=== PATIENT | female | born 1960 | race African-American/Black ===

== ENCOUNTER 2020-12-12 07:31 | Inpatient (IN) | payer OTHER ==
[2020-12-01 14:56] VITALS: BMI 30.6
[2020-12-12] MEDS ORDERED: TRANEXAMIC ACID 1000 MG/10 ML VIAL ONE (09:15)
[2020-12-12] MEDS ORDERED: EPINEPHrine 1:1,000 1 MG/1 ML - 30ML VIAL (INJECTION) ONE (09:15)
[2020-12-12] MEDS ORDERED: SODIUM CHLORIDE 0.9% P/F 10 ML VIAL IJ ONE (09:15)
[2020-12-12] MEDS ORDERED: BUPIVACAINE HCL/PF 0.5% (5 MG/ML) 30 ML VIAL IJ ONE (09:23)
[2020-12-12] MEDS ORDERED: MIDAZOLAM HCL 2 MG/2 ML SINGLE DOSE VIAL ONE (09:23)
[2020-12-12] MEDS ORDERED: BUPIVACAINE LIPOSOME/PF (EXPAREL) 266 MG/20 ML VIAL ONE (09:23)
[2020-12-12] MEDS ORDERED: LIDOCAINE HCL/PF 2% SDV 5ML VIAL ONE (10:17)
[2020-12-12] MEDS ORDERED: ROCURONIUM BROMIDE 50 MG/5 ML SYRINGE ONE (10:17)
[2020-12-12] MEDS ORDERED: ALBUTEROL SO4 HFA INHALER IH ONE (10:17)
[2020-12-12] MEDS ORDERED: DEXAMETHASONE SOD PHOSPHATE 4 MG/1 ML VIAL ONE ×2 (10:17→11:37)
[2020-12-12] MEDS ORDERED: PROPOFOL 20 ML ONE ×2 (10:17→14:14)
[2020-12-12] MEDS ORDERED: ONDANSETRON 4 MG/2 ML VIAL ONE ×2 (10:17→14:46)
[2020-12-12] MEDS ORDERED: ceFAZolin SODIUM 1 GM VIAL ONE ×2 (11:19→15:50)
[2020-12-12] MEDS ORDERED: VANCOMYCIN 1,000 MG VIAL (RESTRICTED TO ID ONLY) ONE (11:47)
[2020-12-12] MEDS ORDERED: ALBUTEROL SO4 HFA INHALER IH PRN (12:47)
[2020-12-12] MEDS ORDERED: GABAPENTIN 300 MG CAPSULE PO SCH (14:00)
[2020-12-12] MEDS ORDERED: ONDANSETRON 4 MG/2 ML VIAL IVPUSH PRN ×2 (16:03→16:42)
[2020-12-12] MEDS ORDERED: MAG HYDROX/AL HYDROX/SIMETH 30 ML UNIT-DOSE CUP PO PRN (16:03)
[2020-12-12] MEDS ORDERED: oxyCODONE HCL 5 MG TABLET PO PRN (16:09)
[2020-12-12] MEDS ORDERED: morphine SULFATE 4 MG/ML VIAL SQ PRN (16:10)
[2020-12-12] MEDS ORDERED: ACETAMINOPHEN 325 MG TABLET (FP) PO SCH (16:15)
[2020-12-12] MEDS ORDERED: LACTATED RINGERS SOLUTION 1,000 ML IV SCH ×2 (16:15→16:45)
[2020-12-12] MEDS ORDERED: ACETAMINOPHEN 325 MG TABLET (FP) ONE (16:44)
[2020-12-12] MEDS: GABAPENTIN 300 MG CAPSULE PO SCH (17:56)
[2020-12-12] MEDS: SENNOSIDES/DOCUSATE COMBO (SENNA PLUS) TABLET (UD) PO SCH (21:09)
[2020-12-12] MEDS: risperiDONE 1 MG TABLET PO SCH (21:10)
[2020-12-12] MEDS: CARVEDILOL 25 MG TABLET (FP) PO SCH (21:10)
[2020-12-12] MEDS: FLUTICASONE/SALMETEROL 100 MCG/50 MCG DISKUS IH SCH (21:10)
[2020-12-13] MEDS: GABAPENTIN 300 MG CAPSULE PO SCH ×3 (02:00→17:33)
[2020-12-13] MEDS: ACETAMINOPHEN 325 MG TABLET (FP) PO SCH ×5 (06:46→23:13)
[2020-12-13 07:31] LABS: HEMATOCRIT 35.4 % (32.4-45.2); HEMOGLOBIN 11.6 GM/dl (10.7-15.3); MCH 27.7 pg (25.7-33.7); MCHC 32.8 g/dl (32.0-36.0); MEAN CELL VOLUME 84.4 fl (80-96); MEAN PLT VOLUME 8.5 fl (7.5-11.1); PLATELET COUNT 217 K/MM3 (134-434); RDW 13.9 % (11.6-15.6); WHITE BLOOD COUNT 10.4 K/mm3 (4.0-10.8)
[2020-12-13 07:43] LABS: CALCIUM 8.4 mg/dl (8.5-10); CREATININE 1.2 mg/dl (0.55-1.3)
[2020-12-13] MEDS: HYDROCHLOROTHIAZIDE 25 MG TABLET (FP) PO SCH (09:51)
[2020-12-13] MEDS: ASPIRIN 325 MG TABLET PO SCH (09:51)
[2020-12-13] MEDS: PANTOPRAZOLE 40 MG TABLET PO SCH (09:51)
[2020-12-13] MEDS: CEFAZOLIN 2 GM/D5W 2 GM/50 ML ML IVPB SCH ×2 (09:51)
[2020-12-13] MEDS: CARVEDILOL 25 MG TABLET (FP) PO SCH ×2 (09:51→21:42)
[2020-12-13] MEDS: MULTIVITAMINS (DAILY MVI) TABLET (FP) PO SCH (09:51)
[2020-12-13] MEDS: FLUTICASONE/SALMETEROL 100 MCG/50 MCG DISKUS IH SCH ×2 (09:52→21:42)
[2020-12-13] MEDS: METOPROLOL TARTRATE 50 MG TABLET (FP) PO SCH (09:52)
[2020-12-13] MEDS: SENNOSIDES/DOCUSATE COMBO (SENNA PLUS) TABLET (UD) PO SCH ×2 (09:52→21:43)
[2020-12-13] MEDS: LISINOPRIL 20 MG TABLET PO SCH (09:53)
[2020-12-13] MEDS ORDERED: PATIENT'S OWN MEDICATION (NON-FORMULARY) (Lisinopril/Hydrochlorothiazide [Lisinopril-Hctz PO SCH (10:00)
[2020-12-13] MEDS: INSULIN (NOVOLOG) ASPART 100 UNITS/ML 10ML VIAL SQ SCH ×3 (11:30→21:43)
[2020-12-13] MEDS: oxyCODONE HCL 5 MG TABLET PO PRN ×2 (13:57→21:43)
[2020-12-13] MEDS: risperiDONE 1 MG TABLET PO SCH (21:43)
[2020-12-14] MEDS: GABAPENTIN 300 MG CAPSULE PO SCH ×2 (01:10→09:19)
[2020-12-14] MEDS: ACETAMINOPHEN 325 MG TABLET (FP) PO SCH (06:40)
[2020-12-14 08:04] LABS: HEMATOCRIT 36.8 % (32.4-45.2); HEMOGLOBIN 12.4 GM/dl (10.7-15.3); MCH 28.2 pg (25.7-33.7); MCHC 33.8 g/dl (32.0-36.0); MEAN CELL VOLUME 83.4 fl (80-96); MEAN PLT VOLUME 8.7 fl (7.5-11.1); PLATELET COUNT 214 K/MM3 (134-434); RBC 4.41 M/mm3 (3.60-5.2); RDW 14.1 % (11.6-15.6); WHITE BLOOD COUNT 12.4 K/mm3 (4.0-10.8)
[2020-12-14 08:51] VITALS: BP 111/64; PULSE 96; TEMP 97.8
[2020-12-14] MEDS: MULTIVITAMINS (DAILY MVI) TABLET (FP) PO SCH (09:19)
[2020-12-14] MEDS: ASPIRIN 325 MG TABLET PO SCH (09:19)
[2020-12-14] MEDS: METOPROLOL TARTRATE 50 MG TABLET (FP) PO SCH (09:19)
[2020-12-14] MEDS: CARVEDILOL 25 MG TABLET (FP) PO SCH (09:19)
[2020-12-14] MEDS: HYDROCHLOROTHIAZIDE 25 MG TABLET (FP) PO SCH (09:19)
[2020-12-14] MEDS: SENNOSIDES/DOCUSATE COMBO (SENNA PLUS) TABLET (UD) PO SCH (09:19)
[2020-12-14] MEDS: LISINOPRIL 20 MG TABLET PO SCH (09:19)
[2020-12-14] MEDS: PANTOPRAZOLE 40 MG TABLET PO SCH (09:19)
[2020-12-14] MEDS: FLUTICASONE/SALMETEROL 100 MCG/50 MCG DISKUS IH SCH (09:20)
[2020-12-14] MEDS: INSULIN (NOVOLOG) ASPART 100 UNITS/ML 10ML VIAL SQ SCH (09:21)
== END 2020-12-14 11:08 | disposition home or self-care (01) | DRG 322 ==
LOC: FM/S 07:31
PROVIDERS: ADMIT Orthopaedic Surgery; ATTEND Nurse Practitioner Acute Care
PROC: 0RRK0JZ Replacement of Left Shoulder Joint with Synthetic Substitute, Open Approach (ICD-10-PCS; principal; 2020-12-12 11:39)
DX: M19.012 Primary osteoarthritis, left shoulder (principal); I12.9 Hypertensive chronic kidney disease with stage 1 through stage 4 chronic kidney disease, or unspecified chronic kidney disease; N18.9 Chronic kidney disease, unspecified; E11.22 Type 2 diabetes mellitus with diabetic chronic kidney disease; M75.52 Bursitis of left shoulder; M65.812 Other synovitis and tenosynovitis, left shoulder; F10.21 Alcohol dependence, in remission; F14.21 Cocaine dependence, in remission; J45.909 Unspecified asthma, uncomplicated; F12.21 Cannabis dependence, in remission; F31.9 Bipolar disorder, unspecified
CPT/HCPCS: 36415; 73030-TC-LT-FY; 80048; 82962; 85027; 88304-TC; 88311-TC; 94760; 97116-GP; 97162-GP; J2794

== ENCOUNTER 2023-04-26 04:10 | Day surgery (SDC) | payer OTHER ==
[2023-04-25 09:50] VITALS: BMI 33.9
[~2023-04-26 04:10] MED LIST: BUPIVACAINE HCL/PF 0.75% 10 ML VIAL NR ONE; LIDOCAINE HCL 1% PRESERVATIVE FREE - 30ML VIAL IJ ONE
[2023-04-26] MEDS ORDERED: BUPIVACAINE HCL/PF 0.75% 10 ML VIAL ONE (07:19)
[2023-04-26] MEDS ORDERED: LIDOCAINE HCL/PF 1% SDV 5ML VIAL ONE (07:19)
[2023-04-26] MEDS ORDERED: BUPIVACAINE HCL/PF 0.75% 10 ML VIAL NR ONE (10:07)
[2023-04-26] MEDS ORDERED: LIDOCAINE HCL 1% PRESERVATIVE FREE - 30ML VIAL IJ ONE (10:07)
[2023-04-26] MEDS ORDERED: ACETAMINOPHEN 500 MG TABLET (FP) PO PRN (10:12)
[2023-04-26 10:34] VITALS: RESP 18
[2023-04-26 11:12] VITALS: BP 139/80; PULSE 81; TEMP 97.9
== END 2023-04-26 11:00 | disposition home or self-care (01) ==
LOC: JASU-SURG 04:10
PROVIDERS: ATTEND Pain Medicine Pain Medicine
PROC: 3E0T3BZ Introduction of Anesthetic Agent into Peripheral Nerves and Plexi, Percutaneous Approach (ICD-10-PCS; principal; 2023-04-26 10:45)
DX: M47.816 Spondylosis without myelopathy or radiculopathy, lumbar region (principal)
CPT/HCPCS: 76000-TC-FY

== ENCOUNTER 2023-05-21 05:06 | Day surgery (SDC) | payer OTHER ==
[2023-05-17 17:07] VITALS: BMI 33.9
[2023-05-21] MEDS ORDERED: BUPIVACAINE HCL/PF 0.75% 10 ML VIAL ONE (07:18)
[2023-05-21] MEDS ORDERED: LIDOCAINE HCL/PF 1% SDV 5ML VIAL ONE ×2 (07:19→10:46)
[2023-05-21] MEDS ORDERED: LIDOCAINE HCL/PF 2% SDV 5ML VIAL ONE (10:46)
[2023-05-21] MEDS ORDERED: DEXAMETHASONE SOD PHOSPHATE 10 MG/1 ML VIAL ONE (10:47)
[2023-05-21] MEDS ORDERED: BUPIVACAINE HCL/PF 0.75% 10 ML VIAL NR ONE (11:01)
[2023-05-21] MEDS ORDERED: LIDOCAINE HCL 1% PRESERVATIVE FREE - 30ML VIAL INF ONE (11:02)
[2023-05-21 11:23] VITALS: PULSE 64
[2023-05-21 11:39] VITALS: BP 142/79; RESP 18; TEMP 97.8
[2023-05-21] MEDS ORDERED: ACETAMINOPHEN 500 MG TABLET (FP) PO PRN (12:43)
== END 2023-05-21 11:40 | disposition home or self-care (01) ==
LOC: JASU-SURG 05:06
PROVIDERS: ATTEND Pain Medicine Pain Medicine
PROC: 3E0T3BZ Introduction of Anesthetic Agent into Peripheral Nerves and Plexi, Percutaneous Approach (ICD-10-PCS; principal; 2023-05-21 10:00)
DX: M47.816 Spondylosis without myelopathy or radiculopathy, lumbar region (principal)
CPT/HCPCS: 76000-TC-FY; J1100

== ENCOUNTER 2023-07-02 04:17 | Day surgery (SDC) | payer OTHER ==
[2023-07-01 11:42] VITALS: BMI 32.9
[~2023-07-02 04:17] MED LIST changes: -BUPIVACAINE HCL/PF 0.75% 10 ML VIAL NR ONE; +LIDOCAINE 1% P/F 10 MG/ML VIAL INF ONE; -LIDOCAINE HCL 1% PRESERVATIVE FREE - 30ML VIAL IJ ONE; +LIDOCAINE HCL 2% (50ML VIAL) INF ONE
[2023-07-02] MEDS ORDERED: LIDOCAINE HCL/PF 2% SDV 5ML VIAL ONE (07:15)
[2023-07-02] MEDS ORDERED: BUPIVACAINE HCL/PF 0.75% 10 ML VIAL ONE (07:16)
[2023-07-02] MEDS ORDERED: DEXAMETHASONE SOD PHOSPHATE 10 MG/1 ML VIAL ONE (07:16)
[2023-07-02] MEDS ORDERED: LIDOCAINE HCL/PF 1% SDV 5ML VIAL ONE (07:16)
[2023-07-02 07:37] VITALS: RESP 20
[2023-07-02] MEDS ORDERED: BUPIVACAINE HCL/PF 0.75% 10 ML VIAL NR ONE (10:32)
[2023-07-02] MEDS ORDERED: LIDOCAINE HCL 2% (50ML VIAL) INF ONE (10:32)
[2023-07-02] MEDS ORDERED: LIDOCAINE 1% P/F 10 MG/ML VIAL INF ONE (10:32)
[2023-07-02] MEDS ORDERED: LIDOCAINE HCL 1%, 10 MG/ML (20ML VIAL) ONE (11:25)
[2023-07-02 13:25] VITALS: BP 132/78; PULSE 72; TEMP 98.2
[2023-07-02] MEDS ORDERED: ACETAMINOPHEN 500 MG TABLET (FP) PO PRN (22:29)
== END 2023-07-02 11:13 | disposition home or self-care (01) ==
LOC: JASU-SURG 04:17
PROVIDERS: ATTEND Pain Medicine Pain Medicine
PROC: 015B3ZZ Destruction of Lumbar Nerve, Percutaneous Approach (ICD-10-PCS; principal; 2023-07-02 09:00)
DX: M47.816 Spondylosis without myelopathy or radiculopathy, lumbar region (principal)
CPT/HCPCS: 76000-TC-FY; J1100

== ENCOUNTER 2024-03-20 04:28 | Day surgery (SDC) | payer OTHER ==
[2024-03-19 13:39] VITALS: BMI 28.3
[2024-03-20] MEDS ORDERED: TRIAMCINOLONE ACET 40MG/1ML VIAL ONE (07:19)
[2024-03-20] MEDS ORDERED: BUPIVACAINE HCL/PF 0.5% (5MG/ML) 10 ML VIAL ONE (07:20)
[2024-03-20] MEDS ORDERED: LIDOCAINE HCL/PF 1% SDV 5ML VIAL ONE (07:20)
[2024-03-20 09:33] VITALS: RESP 17; TEMP 97.7
[2024-03-20 09:44] VITALS: BP 118/74; PULSE 79
== END 2024-03-20 09:43 | disposition home or self-care (01) ==
LOC: JASU-SURG 04:28
PROVIDERS: ATTEND Pain Medicine Pain Medicine
PROC: 3E0U3BZ Introduction of Anesthetic Agent into Joints, Percutaneous Approach (ICD-10-PCS; 2024-03-20)
PROC: 3E0U33Z Introduction of Anti-inflammatory into Joints, Percutaneous Approach (ICD-10-PCS; principal; 2024-03-20 09:08)
DX: M53.3 Sacrococcygeal disorders, not elsewhere classified (principal)
CPT/HCPCS: 76000-TC-FY